=== PATIENT | male | born 1995 | race Caucasian/White ===

== ENCOUNTER 2021-10-31 01:57 | Emergency (ER) | payer SELFPAY ==
[~2021-10-31] VITALS: Ht 175.3 cm; Wt 69.0 kg
[2021-10-31 02:12] VITALS: BP 117/75
[2021-10-31] MEDS ORDERED: IBUP-2028 PO (02:36)
== END 2021-10-31 02:39 | disposition home or self-care (01) ==
LOC: ER 01:57
DX: S00.531A Contusion of lip, initial encounter (principal); X58.XXXA Exposure to other specified factors, initial encounter; Y93.89 Activity, other specified; Y92.89 Other specified places as the place of occurrence of the external cause; Y99.8 Other external cause status
CPT/HCPCS: 99281